=== PATIENT | female | born 1985 | race Caucasian/White ===

== ENCOUNTER 2017-10-16 01:05 | Emergency (ER) | payer OTHER ==
[~2017-10-16] VITALS: Ht 160 cm; Wt 45.0 kg
[~2017-10-16 01:05] MED LIST: ADVI200C9 PO; BACL10TA PO; BUTA1CAP2 PO; DICY1TAB26 PO; LEVO100T4 PO; METH750T2 PO; METO25 PO; MORP1CAP82 PO; MULTCAP PO; PERC10TA27 PO; TOPA100T8 PO
[2017-10-16] MEDS ORDERED: IOHEXOL 350 MG/ML 10 ML VIAL (for RAD DIAG) IVCONTRAST ONE (01:06)
[2017-10-16 01:07] VITALS: BP 125/79; PULSE 98; RESP 18; TEMP 98.7; O2SAT 100
[2017-10-16] MEDS ORDERED: SODIUM CHLOR 0.9% 1000 ML INJ 1,000 ML IV SCH (01:38)
[2017-10-16] MEDS ORDERED: ONDANSETRON HCL 4 MG/2 ML VIAL IVP ONE (01:45)
[2017-10-16] MEDS ORDERED: SODIUM CHLORIDE 0.9% FLUSH 10 ML FLUSH IV FLUSH PRN (01:45)
--- NOTE | 2017-10-16 01:53 | RADRPT ---
EXAM DATE/TIME: 10/16/2017 01:43 [facility] COMPARISON: CHEST PA & LAT, December 07, 2014, 12:20. INDICATIONS : Abdominal pain. MEDICAL HISTORY : Lupus. Renal calculi. SURGICAL HISTORY : Appendectomy. ENCOUNTER: Initial ACUITY: 2 weeks PAIN SCORE: 9/10 LOCATION: Bilateral Abdomen FINDINGS: A single view of the chest demonstrates the lungs to be symmetrically aerated without evidence of mas s, infiltrate or effusion. The cardiomediastinal contours are unremarkable. Osseous structures are intact. CONCLUSION: Normal examination. Jack Padilla MD on October 16, 2017 at 1:52 Board Certified Radiologist. This report was verified electronically.
[2017-10-16 02:10] LABS: AUTOMATED NEUTROPHIL # 2.4 TH/MM3 (1.8-7.7); BASOPHIL # 0.1 TH/MM3 (0-0.2); EOSINOPHIL # 0.1 TH/MM3 (0-0.4); EOSINOPHIL % 2.6 % (0.0-4.0); HEMATOCRIT 33.8 % (35.0-46.0); HEMOGLOBIN 11.2 GM/DL (11.6-15.3); LYMPH % 37.2 % (9.0-44.0); MEAN CELL VOLUME 79.3 FL (80.0-100.0); MEAN CORPUSCULAR HEMOGLOBIN 26.3 PG (27.0-34.0); MEAN CORPUSCULAR HGB CONC 33.1 % (32.0-36.0); MEAN PLATELET VOLUME 8.4 FL (7.0-11.0); MONO % 13.1 % (0.0-8.0); MONOCYTE # 0.7 TH/MM3 (0-0.9); NEUT % 46.1 % (16.0-70.0); PLATELET COUNT 225 TH/MM3 (150-450); RED BLOOD COUNT 4.27 MIL/MM3 (4.00-5.30); RED CELL DISTRIBUTION WIDTH 14.1 % (11.6-17.2); WHITE BLOOD COUNT 5.3 TH/MM3 (4.0-11.0)
[2017-10-16 02:18] LABS: BACTERIA, URINE RARE /hpf; BILIRUBIN, URINE NEG (NEG); BLOOD, URINE NEG (NEG); GLUCOSE,URINE NEG (NEG); KETONE, URINE NEG (NEG); MUCUS URINE FEW /lpf (OCC); NITRITE,URINE NEG (NEG); SQUAMOUS EPITHELIAL CELL URINE 14 /hpf (0-5); URINE COLOR YELLOW (YELLW/STRAW); URINE LEUKOCYTE ESTERASE MOD (NEG)
[2017-10-16 02:27] LABS: ALBUMIN 4.5 GM/DL (3.4-5.0); ALT (GPT) 10 U/L (10-53); AST (GOT) 12 U/L (15-37); BICARBONATE 24.8 MEQ/L (21.0-32.0); BLOOD UREA NITROGEN 8 MG/DL (7-18); CALCIUM 8.6 MG/DL (8.5-10.1); CHLORIDE 107 MEQ/L (98-107); CREATININE 0.72 MG/DL (0.50-1.00); GLOMERULAR FILTRATION RATE 93 ML/MIN (>89); GLUCOSE,RANDOM 79 MG/DL (74-106); SODIUM (NA) 140 MEQ/L (136-145)
[2017-10-16 02:29] LABS: ALKALINE PHOSPHATASE 59 U/L (45-117); TOTAL BILIRUBIN ADULT 0.1 MG/DL (0.2-1.0); TOTAL PROTEIN 8.4 GM/DL (6.4-8.2)
--- NOTE | 2017-10-16 02:32 | PD ---
HPI Chief Complaint: Abdominal Pain Time Seen by Provider: 01:38 Travel History International Travel<30 days: No Contact w/Intl Traveler<30days: No Traveled to known affect area: No History of Present Illness HPI 32-year-old female presents to the emergency department by private transportation for complaint of chronic abdominal pain worsening over the past 3 weeks with nausea vomiting intermittent fever and irregular menses. Patient states she has had abdominal pain for the past 2 years. Patient states she has had abnormal vaginal bleeding 2 years. Patient reportedly has history of lupus and previous appendectomy. Patient also has history of recurrent ovarian cysts. Patient was referred to [facility] 2 years ago but due to her insurance she states she was not able to be seen. Patient was followed by primary care provider regarding her lupus but has not had a primary care provider for the past 2 years. Patient is prescribed Percocet through her pain management provider for chronic pain. Patient states family members have been ill so she became concerned that she may have similar illness and decided to come to the emergency room for evaluation. Patient denies sore throat earache productive cough shortness of breath chest pain but has experienced lower abdominal pain right greater than left lower quadrant and flank pain. Patient denies dysuria frequency urgency or hematuria. Patient denies abnormal vaginal discharge. Patient has not been sexually active for a year and a half and denies . Patient denies other concerns or complaints. Patient rates her pain as 10/10 in intensity. Pain is worsened by palpation and movement. Patient does not note significant relief of pain although does take Percocet for pain relief as well as Percocet for management of her fever went present. Patient reports her temperature has been elevated to 101F. Patient does admit to myalgias and arthralgias. [facility] Past Medical History Narrative Medical Anxiety depression, dyslipidemia, ovarian cyst, neurocardiogenic syncope, ARDS, appendectomy, lupus, migraines, hypothyroidism, appendectomy, Ab4; nursing notes reviewed Asthma: No Blood Disorders: No Anxiety: Yes Depression: Yes Heart Rhythm Problems: No Cancer: No Cardiovascular Problems: Yes (neurocardiogenic syncope) High Cholesterol: Yes Chemotherapy: No Chest Pain: No Congestive Heart Failure: No COPD: No Diabetes: No Diminished Hearing: No Endocrine: Yes Gastrointestinal Disorders: Yes (ABD PAIN) Genitourinary: Yes (UTI'S AND STONES) Immune Disorder: Yes (LUPUS) Medical other: Yes (ARDS) Musculoskeletal: No Neurologic: No Psychiatric: Yes Reproductive: No Respiratory: Yes (ARDS 2012) Immunizations Current: Yes Migraines: Yes Radiation Therapy: No Sleep Apnea: No Thyroid Disease: Yes (HYPOTHYROID) Tetanus Vaccination: < 5 Years Influenza Vaccination: No ?: Not LMP: irregular periods : 6 Para: 2 Miscarriage: 4 Past Surgical History Appendectomy: Yes (01/22) Pacemaker: No Other Surgery: Yes (APPENDECTOMY 01/22) Social History Alcohol Use: No Tobacco Use: No Substance Use: No Allergies-Medications (Allergen,Severity, Reaction): Coded Allergies: doxycycline (Unverified Allergy, Severe, 10/16/17) BLISTERS TO MOUTH AND GENITALS trazodone (Verified Allergy, Severe, 10/16/17) migraine acyclovir (Unverified Allergy, Mild, BLISTERS, 10/16/17) Reported Meds & Prescriptions Reported Meds & Active Scripts Active Reported Fioricet (Bflhxvrkwd-Ocehzdautbrwo-Yxsdfamv) 50-300-40 Mg Cap 1 Cap PO Q4H PRN Tizanidine (Tizanidine HCl) 4 Mg Cap 4 Mg PO TID Percocet (Oxycodone-Acetaminophen) 10-325 mg Tab 1 Tab PO TID PRN Review of Systems Except as stated in HPI: all other systems reviewed are Neg General / Constitutional: Positive: Fever, No: Chills HENT: No: Sore Throat, Congestion Cardiovascular: No: Chest Pain or Discomfort Respiratory: No: Cough Gastrointestinal: Positive: Nausea, Vomiting, Abdominal Pain, No: Hematemesis, Hematochezia Genitourinary: Positive: Pelvic Pain, Flank Pain, Vaginal Bleeding, No: Dysuria , Discharge Musculoskeletal: Positive: Myalgias, Arthralgias Skin: No Rash Neurologic: No: Weakness Psychiatric: No: Anxiety Endocrine: No: Heat Intolerance Hematologic/Lymphatic: No: Lymph Node Enlargement Physical Exam Narrative GENERAL: Well-developed well-nourished female rocking back and forth holding her abdomen; triage vital signs found to be within normal range SKIN: Warm and dry. HEAD: Normocephalic. EYES: No scleral icterus. No injection or drainage. NECK: Supple, trachea midline. No JVD or lymphadenopathy. CARDIOVASCULAR: Regular rate and rhythm without murmurs, gallops, or rubs. RESPIRATORY: Breath sounds equal bilaterally. No accessory muscle use. GASTROINTESTINAL: Abdomen soft, diffusely tender to palpation right lower quadrant greater than left lower quadrant without guarding or rebound, nondistended. MUSCULOSKELETAL: No cyanosis, or edema. BACK: Nontender without obvious deformity. No CVA tenderness. Data Data Last Documented VS Vital Signs Date Time Temp Pulse Resp B/P (MAP) Pulse Ox O2 Delivery O2 Flow Rate FiO2 10/16/17 05:48 90 18 98/57 (71) 100 Room Air 10/16/17 01:07 98.7 Orders Orders Complete Blood Count With Diff (10/16/17 01:38) Comprehensive Metabolic Panel (10/16/17 01:38) Lipase (10/16/17 01:38) Urinalysis - C+S If Indicated (10/16/17 01:38) Ct Abd/Pel W Iv Contrast(Rout) (10/16/17 01:38) Iv Access Insert/Monitor (10/16/17 01:38) Ecg Monitoring (10/16/17 01:38) Oximetry (10/16/17 01:38) Ondansetron Inj (Zofran Inj) (10/16/17 01:45) Sodium Chlor 0.9% 1000 Ml Inj (Ns 1000 M (10/16/17 01:38) Sodium Chloride 0.9% Flush (Ns Flush) (10/16/17 01:45) Chest, Single Ap (10/16/17 01:38) Ed Urine Pregnancytest Poc (10/16/17 01:38) Iohexol 350 Inj (Omnipaque 350 Inj) (10/16/17 01:06) Ketorolac Inj (Toradol Inj) (10/16/17 03:15) Potassium Chloride (Kcl) (10/16/17 03:15) Wet Prep Profile (10/16/17 03:14) Gc And Chlamydia Pcr (10/16/17 03:14) Morphine Inj (Morphine Inj) (10/16/17 03:45) Lactic Acid (10/16/17 03:44) Us Pelvis Comp W Dop Transvag (10/16/17 03:36) Morphine Inj (Morphine Inj) (10/16/17 05:30) Sodium Chlorid 0.9% 500 Ml Inj (Ns 500 M (10/16/17 05:30) Ceftriaxone Inj (Rocephin Inj) (10/16/17 07:30) Azithromycin (Zithromax) (10/16/17 07:30) Morphine Inj (Morphine Inj) (10/16/17 07:30) Ondansetron Inj (Zofran Inj) (10/16/17 07:30) Labs Laboratory Tests Test 10/16/17 01:50 10/16/17 03:30 10/16/17 03:55 White Blood Count 5.3 TH/MM3 Red Blood Count 4.27 MIL/MM3 Hemoglobin 11.2 GM/DL Hematocrit 33.8 % Mean Corpuscular Volume 79.3 FL Mean Corpuscular Hemoglobin 26.3 PG Mean Corpuscular Hemoglobin Concent 33.1 % Red Cell Distribution Width 14.1 % Platelet Count 225 TH/MM3 Mean Platelet Volume 8.4 FL Neutrophils (%) (Auto) 46.1 % Lymphocytes (%) (Auto) 37.2 % Monocytes (%) (Auto) 13.1 % Eosinophils (%) (Auto) 2.6 % Basophils (%) (Auto) 1.0 % Neutrophils # (Auto) 2.4 TH/MM3 Lymphocytes # (Auto) 2.0 TH/MM3 Monocytes # (Auto) 0.7 TH/MM3 Eosinophils # (Auto) 0.1 TH/MM3 Basophils # (Auto) 0.1 TH/MM3 CBC Comment DIFF FINAL Differential Comment Urine Color YELLOW Urine Turbidity HAZY Urine pH 8.0 Urine Specific [place] 1.023 Urine Protein TRACE mg/dL Urine Glucose (UA) NEG mg/dL Urine Ketones NEG mg/dL Urine Occult Blood NEG Urine Nitrite NEG Urine Bilirubin NEG Urine Urobilinogen LESS THAN 2.0 MG/DL Urine Leukocyte Esterase MOD Urine RBC 3 /hpf Urine WBC 3 /hpf Urine Squamous Epithelial Cells 14 /hpf Urine Bacteria RARE /hpf Urine Mucus FEW /lpf Microscopic Urinalysis Comment CULT NOT INDICATED Blood Urea Nitrogen 8 MG/DL Creatinine 0.72 MG/DL Random Glucose 79 MG/DL Total Protein 8.4 GM/DL Albumin 4.5 GM/DL Calcium Level 8.6 MG/DL Alkaline Phosphatase 59 U/L Aspartate Amino Transf (AST/SGOT) 12 U/L Alanine Aminotransferase (ALT/SGPT) 10 U/L Total Bilirubin 0.1 MG/DL Sodium Level 140 MEQ/L Potassium Level 3.1 MEQ/L Chloride Level 107 MEQ/L Carbon Dioxide Level 24.8 MEQ/L Anion Gap 8 MEQ/L Estimat Glomerular Filtration Rate 93 ML/MIN Lipase 107 U/L Clue Cells (Wet Prep) NONE SEEN Vaginal Trichomonas (Wet Prep) NONE SEEN Vaginal Yeast (Wet Prep) NONE SEEN Chlamydia trachomatis DNA (PCR) NOT DETECTED Neisseria gonorrhoeae DNA (PCR) NOT DETECTED Lactic Acid Level 1.6 mmol/L MDM Medical Decision Making Medical Screen Exam Complete: Yes Emergency Medical Condition: Yes Medical Record Reviewed: Yes Interpretation(s) POC hcg: negative CBC & BMP Diagram 10/16/17 01:50 Total Protein 8.4 H, Albumin 4.5, Calcium Level 8.6, Alkaline Phosphatase 59, Aspartate Amino Transf (AST/SGOT) 12 L, Alanine Aminotransferase (ALT/SGPT) 10, Total Bilirubin 0.1 L Vital Signs Date Time Temp Pulse Resp B/P (MAP) Pulse Ox O2 Delivery O2 Flow Rate FiO2 10/16/17 01:07 98.7 98 18 125/79 (94) 100 pelvic US: FINDINGS: Uterus and endometrium are normal in appearance. The left ovary is normal in appearance. Blood flow is documented on color imaging. There is a small amount of free fluid in the pelvis. Endometrial thickness of 11 mm. At the level of the right adnexa a complex cystic-appearing structure is noted with internal echoes, and no internal blood flow on color Doppler imaging however surrounding hyperemia is noted. 2 cystic appearing foci measuring 2.5 x 1.9 x 1.6 cm and 2.6 x 2.7 x 2.7 cm are noted and appear to interconnect on cine images suggesting either a hydrosalpinx or a complex ovarian cyst with internal echoes. The former is favored. CONCLUSION: Normal uterus and left ovary. Free fluid in the pelvis. Complex cystic structure in the right adnexal region with surrounding increased color Doppler flow may reflect either a hydrosalpinx or complex ovarian cyst, the former is favored given the appearance. Jack Padilla MD on October 16, 2017 at 5:32 Board Certified Radiologist. This report was verified electronically. Differential Diagnosis Abdominal pain, gastroenteritis, ectopic , ruptured ovarian cyst, ovarian torsion, UTI, renal colic, appendicitis, pyelonephritis, UTI, dehydration, migraine Narrative Course IV access obtained specimens for extensive resulting patient administered 1 L normal saline and Zofran 4 mg IV Point of care hCG is negative renal function is normal and patient is stable for CT abdomen and pelvis Pelvic exam: Normal external exam no redness no induration no lesions; speculum exam scant white mucus no blood no clots no tissue cervical office is closed; bimanual exam no cervical motion tenderness palpable right adnexal tenderness without palpable mass. Patient administered morphine sulfate 2 mg IV.; Pelvic ultrasound with Doppler ordered Patient with increased pain status post pelvic ultrasound morphine sulfate 3 mg IV administered Patient seen in the emergency department by on-call OB ED physician Dr. Pablo who has examined the patient and does not feel that the patient has an urgent/emergent [facility] issue and can follow-up in 3 months regarding her chronic hydrosalpinx and ovarian cyst changes; on physical exam and on pelvic exam patient does not have cervical motion tenderness and no discharge wet prep is negative patient will presumptively be covered with Rocephin and azithromycin although she states she has been sexually inactive for a year and a half regarding pending PCR chlamydia and gonorrhea results. Patient is stable for outpatient management on CT abdomen pelvis no inflammatory changes for colitis or cystitis or enteritis. Patient is informed of lab results imaging results and recommendation for outpatient follow-up. Patient states she is having issues finding a primary care provider and SALES SPECIALIST this needs to be managed to her insurance provider and she is aware of this also encouraged her to follow-up with case management for provider resources. Physician Communication Physician Communication @ 5:55 discussed with crm solution architect OB ED MD Amy mirza, Dr Pablo @ 6:45 at bedside Diagnosis Primary Impression: Abdominal pain Qualified Codes: R10.31 - Right lower quadrant pain Additional Impression: Hydrosalpinx Referrals: Lab Scientist call for appointment Patient Instructions: General Instructions Additional Instructions: Increase fluid hydration Follow clear liquid diet for the next 12-24 hours Take Zofran as prescribed as needed for nausea and/or vomiting Continue chronic medications as currently prescribed Follow-up with manager integrated call office to schedule follow-up appointment Follow-up with primary care provider Return to the emergency department for any concerns or change in condition Take acetaminophen/Tylenol every 4 hours as needed for fever 100.4F or greater Take ibuprofen 400 mg as often as every 6 hours for fever 100.4F or greater for pain associated with inflammation Med/Other Pt SpecificInfo: Prescription(s) given Scripts Ondansetron Odt (Zofran Odt) 4 Mg Tab 4 MG SL Q6HR Y for Nausea/Vomiting, #10 TAB 0 Refills Prov: Jennifer Jorge MD 10/16/17 Disposition: 01 DISCHARGE HOME Condition: Stable Jennifer Jorge MD Oct 16, 2017 02:32
--- NOTE | 2017-10-16 03:05 | RADRPT ---
EXAM DATE/TIME: 10/16/2017 02:43 [facility] COMPARISON: CT ABDOMEN & PELVIS W CONTRAST, July 10, 2015, 17:44. INDICATIONS : Abdomen pain with vomiting. IV CONTRAST: 97 cc Omnipaque 350 (iohexol) IV ORAL CONTRAST: No oral contrast ingested. RADIATION DOSE: 4.65 CTDIvol (mGy) MEDICAL HISTORY : Cardiovascular disease. Lupus. Renal calculi. SURGICAL HISTORY : Appendectomy. ENCOUNTER: Initial ACUITY: 2 days PAIN SCALE: 7/10 LOCATION: Bilateral abdomen TECHNIQUE: Volumetric scanning of the abdomen and pelvis was performed. Using automated exposure control and ad justment of the mA and/or kV according to patient size, radiation dose was kept as low as reasonably achievable to obtain optimal diagnostic quality images. DICOM format image data is available electro nically for review and comparison. FINDINGS: Liver, gallbladder, spleen, left kidney, pancreas, adrenals, stomach, small bowel, large bowel, urina ry bladder are unremarkable. Nonobstructing 2 mm calculus right lower pole kidney. There is a small a mount free fluid in the pelvis. Left ovary is normal. In the right adnexal region a hypodense mass is identified on axial image 59 measuring approximately 2.8 x 2.4 cm in transverse and AP dimension. Th ere is a suggestion of a somewhat tubular orientation. A hydrosalpinx can have this appearance. A sep tated cyst of the right ovary is also a differential diagnostic consideration however favor the forme r. On axial image 64 through 60 in the left lower quadrant just superior to the urinary bladder and t o the left of the cecum or inflammatory changes within the abdominal fat. There is no adjacent bowel wall thickening to suggest a colitis, and the patient is reportedly status post appendectomy. The allan g bases are clear. The osseous structures are intact. CONCLUSION: Hypodense mass right adnexa felt to represent a hydrosalpinx with enhancement. Small amount of free f luid in the pelvis. There is inflammatory stranding in the left lower quadrant just superior to the u rinary bladder of uncertain etiology. No definite adjacent bowel wall thickening or bladder wall thic kening is seen. The possibility of pelvic inflammatory disease should be entertained in the right adn exal findings and inflammatory stranding, a tubo-ovarian abscess is difficult to exclude. Jack Padilla MD on October 16, 2017 at 2:56 Board Certified Radiologist. This report was verified electronically.
[2017-10-16] MEDS ORDERED: KETOROLAC TROMETHAMINE 30 MG/ML (IVP) VIAL IV PUSH ONE (03:15)
[2017-10-16] MEDS ORDERED: POTASSIUM CHLORIDE 20 MEQ CONTROLLED RELEASE TAB PO ONE (03:15)
[2017-10-16] MEDS ORDERED: MORPHINE SULFATE 2 MG/ML INJ IV PUSH ONE ×3 (03:45→07:30)
[2017-10-16] MEDS ORDERED: SODIUM CHLORID 0.9% 500 ML INJ 500 ML IV ONE (05:30)
--- NOTE | 2017-10-16 05:42 | RADRPT ---
EXAM DATE/TIME: 10/16/2017 04:28 [facility] COMPARISON: CT ABDOMEN & PELVIS W CONTRAST, October 16, 2017, 2:43. INDICATIONS : Right sided pelvic pain. MEDICAL HISTORY : Hypothyroidism. Hypercholesterolemia. Lupus. Ovarian cysts. Migraines. Neurocardiogenic syncope. ARDS . UTIs. Stones. Depression. Anxiety. SURGICAL HISTORY : Arthroscopy. Ovarian cyst removal. Blood transfusions. ENCOUNTER: Initial ACUITY: 1 month PAIN SCORE: 9/10 LOCATION: Bilateral pelvis MEASUREMENTS: UTERUS: 9.0 x 6.4 x 5.1 cm ENDOMETRIAL STRIPE: 11 mm RIGHT OVARY: 4.3 x 3.9 x 4.0 cm LEFT OVARY: 3.8 x 2.7 x 1.2 cm FINDINGS: Uterus and endometrium are normal in appearance. The left ovary is normal in appearance. Blood flow i s documented on color imaging. There is a small amount of free fluid in the pelvis. Endometrial thick ness of 11 mm. At the level of the right adnexa a complex cystic-appearing structure is noted with in ternal echoes, and no internal blood flow on color Doppler imaging however surrounding hyperemia is n oted. 2 cystic appearing foci measuring 2.5 x 1.9 x 1.6 cm and 2.6 x 2.7 x 2.7 cm are noted and appea r to interconnect on cine images suggesting either a hydrosalpinx or a complex ovarian cyst with inte rnal echoes. The former is favored. CONCLUSION: Normal uterus and left ovary. Free fluid in the pelvis. Complex cystic structure in t he right adnexal region with surrounding increased color Doppler flow may reflect either a hydrosalpi nx or complex ovarian cyst, the former is favored given the appearance. Jack Padilla MD on October 16, 2017 at 5:32 Board Certified Radiologist. This report was verified electronically.
[2017-10-16 05:48] VITALS: BP 98/57; PULSE 90; RESP 18; O2SAT 100
[2017-10-16] MEDS ORDERED: TIZA4CAP3 PO (06:46)
[2017-10-16] MEDS ORDERED: PERC10TA27 PO (06:46)
[2017-10-16] MEDS ORDERED: BUTA1CAP PO (06:46)
[2017-10-16] MEDS ORDERED: ZOFR4TAB3 SL (07:28)
[2017-10-16] MEDS ORDERED: ONDANSETRON HCL 4 MG/2 ML VIAL IV PUSH ONE (07:30)
[2017-10-16] MEDS ORDERED: AZITHROMYCIN 250 MG TAB PO ONE (07:30)
[2017-10-16] MEDS ORDERED: cefTRIAXone INJ 1,000 MG in SODIUM CHLORIDE 0.9% INJ 100 ML IV ONE (07:30)
--- NOTE | 2017-10-16 07:32 | PD.CONS ---
HPI Chief Complaint Abdominal pain Date Seen: Oct 16, 2017 Time Seen: 06:45 Travel History International Travel<30 Days: No Contact w/Intl Traveler<30Days: No Known Affected Area: No History of Present Illness HPI 32-year-old female with last missed her period 8 days ago who presented to the emergency room for evaluation of abdominal pain. The patient reports having had abdominal pain over the past 2 years. She reports having had increasing pain over the past couple of weeks and several days which prompted this evaluation. She has a background history of chronic pain syndrome and is under the care of a pain provider. She uses intermittent Percocet for symptoms. She states that she has had intermittent low-grade fever reportedly as high as 101. She is afebrile here. She states that she has had no significant change in her bowel habits and has had no letter in her stool. She denies dysuria hematuria or frequency. She has had nausea without vomiting and reports that she has several family members are ill with intestinal symptoms. She denies abnormal vaginal discharge or irritation. Her gynecologic history is significant for irregular menstruation with bleeding every 7-10 days. She uses a menstrual cup and reports that she feels her cup about every 35 minutes when bleeding. She is not sexually active and has not had sexual contact for greater than 2 years. She reports that 18 months ago she had the right ovarian cystectomy performed by Dr. Britton. She was unable to obtain postsurgical follow-up and care due to insurance barriers. She is currently using no contraceptive. Ultrasound on this admission suggested a possible right hydrosalpinx versus bi- lobed cystic ovarian process. There is blood flow to the adnexa. History Past Medical History Narrative Medical Lupus Chronic pain syndrome Past Surgical History Narrative Surgical Appendectomy Right ovarian cystectomy Family History Family History: Negative Social History Alcohol Use: No Tobacco Use: No Substance Abuse: No Allergies-Medications (Allergen,Severity, Reaction): Coded Allergies: doxycycline (Unverified Allergy, Severe, 10/16/17) BLISTERS TO MOUTH AND GENITALS trazodone (Verified Allergy, Severe, 10/16/17) migraine acyclovir (Unverified Allergy, Mild, BLISTERS, 10/16/17) Home Meds Active Scripts Ondansetron Odt (Zofran Odt) 4 Mg Tab, 4 MG SL Q6HR Y for Nausea/Vomiting, #10 TAB 0 Refills Prov:Jennifer Jorge MD 10/16/17 Reported Medications Ukzsqzimfd-Hueaobvtwgqyj-Uegcuplt (Fioricet) 50-300-40 Mg Cap, 1 CAP PO Q4H Y for HEADACHE, CAP 0 Refills 10/16/17 Tizanidine (Tizanidine) 4 Mg Cap, 4 MG PO TID for Muscle Spasm, CAP 0 Refills 10/16/17 Oxycodone-Acetaminophen (Percocet) 10-325 mg Tab, 1 TAB PO TID Y for PAIN, TAB 0 Refills 10/16/17 Physical Exam Vital Signs Date Time Temp Pulse Resp B/P (MAP) Pulse Ox O2 Delivery O2 Flow Rate FiO2 10/16/17 05:48 90 18 98/57 (71) 100 Room Air 10/16/17 01:07 98.7 98 18 125/79 (94) 100 Narrative GENERAL: Well-nourished, well-developed patient. SKIN: Warm and dry. HEAD: Normocephalic and atraumatic. EYES: No scleral icterus. No injection or drainage. ENT: No nasal drainage noted. Mucous membranes pink. Airway patent. NECK: Supple, trachea midline. No JVD. CARDIOVASCULAR: Regular rate and rhythm without murmurs, gallops, or rubs. RESPIRATORY: Breath sounds equal bilaterally. No accessory muscle use. BREASTS: Bilateral exam showed no masses , no retractions, no nipple discharge. ABDOMEN/GI: Abdomen soft, non-tender, bowel sounds present, no rebound, mild guarding Gravid to [-] weeks size Fundal Height: [-] GENITOURINARY: External Genitalia: intact and normal in appearance BUS glands: [-] Cervix: [-] EXTREMITIES: No cyanosis or edema. BACK: Nontender without obvious deformity. No CVA tenderness. NEUROLOGICAL: Awake and alert. Motor and sensory grossly within normal limits. Five out of 5 muscle strength in all muscle groups. Normal speech. Data Data Orders Orders Complete Blood Count With Diff (10/16/17 01:38) Comprehensive Metabolic Panel (10/16/17 01:38) Lipase (10/16/17 01:38) Urinalysis - C+S If Indicated (10/16/17 01:38) Ct Abd/Pel W Iv Contrast(Rout) (10/16/17 01:38) Iv Access Insert/Monitor (10/16/17 01:38) Ecg Monitoring (10/16/17 01:38) Oximetry (10/16/17 01:38) Ondansetron Inj (Zofran Inj) (10/16/17 01:45) Sodium Chlor 0.9% 1000 Ml Inj (Ns 1000 M (10/16/17 01:38) Sodium Chloride 0.9% Flush (Ns Flush) (10/16/17 01:45) Chest, Single Ap (10/16/17 01:38) Ed Urine Pregnancytest Poc (10/16/17 01:38) Iohexol 350 Inj (Omnipaque 350 Inj) (10/16/17 01:06) Ketorolac Inj (Toradol Inj) (10/16/17 03:15) Potassium Chloride (Kcl) (10/16/17 03:15) Wet Prep Profile (10/16/17 03:14) Gc And Chlamydia Pcr (10/16/17 03:14) Morphine Inj (Morphine Inj) (10/16/17 03:45) Lactic Acid (10/16/17 03:44) Us Pelvis Comp W Dop Transvag (10/16/17 03:36) Morphine Inj (Morphine Inj) (10/16/17 05:30) Sodium Chlorid 0.9% 500 Ml Inj (Ns 500 M (10/16/17 05:30) Labs Laboratory Tests Test 10/16/17 01:50 10/16/17 03:30 10/16/17 03:55 White Blood Count 5.3 Red Blood Count 4.27 Hemoglobin 11.2 Hematocrit 33.8 Mean Corpuscular Volume 79.3 Mean Corpuscular Hemoglobin 26.3 Mean Corpuscular Hemoglobin Concent 33.1 Red Cell Distribution Width 14.1 Platelet Count 225 Mean Platelet Volume 8.4 Neutrophils (%) (Auto) 46.1 Lymphocytes (%) (Auto) 37.2 Monocytes (%) (Auto) 13.1 Eosinophils (%) (Auto) 2.6 Basophils (%) (Auto) 1.0 Neutrophils # (Auto) 2.4 Lymphocytes # (Auto) 2.0 Monocytes # (Auto) 0.7 Eosinophils # (Auto) 0.1 Basophils # (Auto) 0.1 CBC Comment DIFF FINAL Differential Comment Urine Color YELLOW Urine Turbidity HAZY Urine pH 8.0 Urine Specific [place] 1.023 Urine Protein TRACE Urine Glucose (UA) NEG Urine Ketones NEG Urine Occult Blood NEG Urine Nitrite NEG Urine Bilirubin NEG Urine Urobilinogen LESS THAN 2.0 Urine Leukocyte Esterase MOD Urine RBC 3 Urine WBC 3 Urine Squamous Epithelial Cells 14 Urine Bacteria RARE Urine Mucus FEW Microscopic Urinalysis Comment CULT NOT INDICATED Blood Urea Nitrogen 8 Creatinine 0.72 Random Glucose 79 Total Protein 8.4 Albumin 4.5 Calcium Level 8.6 Alkaline Phosphatase 59 Aspartate Amino Transf (AST/SGOT) 12 Alanine Aminotransferase (ALT/SGPT) 10 Total Bilirubin 0.1 Sodium Level 140 Potassium Level 3.1 Chloride Level 107 Carbon Dioxide Level 24.8 Anion Gap 8 Estimat Glomerular Filtration Rate 93 Lipase 107 Clue Cells (Wet Prep) NONE SEEN Vaginal Trichomonas (Wet Prep) NONE SEEN Vaginal Yeast (Wet Prep) NONE SEEN Chlamydia trachomatis DNA (PCR) NOT DETECTED Neisseria gonorrhoeae DNA (PCR) NOT DETECTED Lactic Acid Level 1.6 MDM Medical Record Reviewed: Yes Narrative Course / MDM Assessment: Abdominal pelvic pain of uncertain origin, doubt PID. Probable right hydrosalpinx which I believe is an incidental finding. No evidence of torsion. Plan: Outpatient follow-up for menstrual regulation and follow-up of cystic right adnexal mass. Scripts Ondansetron Odt (Zofran Odt) 4 Mg Tab 4 MG SL Q6HR Y for Nausea/Vomiting, #10 TAB 0 Refills Prov: Jennifer Jorge MD 10/16/17 Referrals: [employer] [facility] call for appointment Patient Instructions: General Instructions Carlos Pablo MD Oct 16, 2017 07:32
[2017-10-16 08:59] VITALS: BP 99/56
== END 2017-10-16 09:02 | disposition home or self-care (01) ==
LOC: NEPC 01:05
DX: R10.2 Pelvic and perineal pain (principal); R11.2 Nausea with vomiting, unspecified; R50.9 Fever, unspecified; N92.6 Irregular menstruation, unspecified; N83.201 Unspecified ovarian cyst, right side; G89.29 Other chronic pain; M32.9 Systemic lupus erythematosus, unspecified; M79.1 Myalgia; M25.50 Pain in unspecified joint
CPT/HCPCS: 71045; 74177; 76830; 76856; 80053; 81001; 83605; 83690; 84703; 85025; 87210; 87491; 87591; 93975; 96361; 96365; 96375; 96376; 99285; J0696; J1885; J2270; J2405; J7030; J7040; Q9967